=== PATIENT | female | born 1955 | race Hispanic/Latino ===

== ENCOUNTER → 2023-01-22 | Outpatient (CLI) | payer MEDICARE ==
[~2023-01-22] MED LIST: IOHEXOL 350 MG/ML 100ML INFUS..BTL IV ONE
[2023-01-22 11:13] LABS: BASOPHILS % (AUTO) 0.3 % (0.0-5.0); EOSINOPHILS % (AUTO) 0.4 % (0.0-8.0); HEMATOCRIT 44.2 % (36-48); LYMPHOCYTES % (AUTO) 24.8 % (21.0-51.0); MEAN CORPUSCULAR HEMOGLOBIN 29.9 pg (27.0-33.0); MEAN CORPUSCULAR HGB CONC 32.1 g/dL (32.0-36.0); MEAN CORPUSCULAR VOLUME 93.1 fL (79-99); MONOCYTES % (AUTO) 6.8 % (3.0-13.0); NEUTROPHILS % (AUTO) 67.3 % (40.0-77.0); PLATELET COUNT (AUTO) 197 K/uL (130-400); RED BLOOD CELL COUNT(AUTO) 4.75 MIL/uL (4.00-5.50); RED CELL DISTRIBUTION WIDTH 13.2 % (11.0-15.5); WHITE BLOOD COUNT (AUTO) 7.8 K/uL (4.8-10.8)
[2023-01-22 11:21] LABS: CREATININE 0.9 mg/dL (0.5-1.5); POTASSIUM 4.1 mmol/L (3.5-5.1)
== END | disposition home or self-care (01) ==
LOC: RAH 10:34
PROVIDERS: ATTEND Family Medicine
DX: N20.0 Calculus of kidney (principal); N28.1 Cyst of kidney, acquired; K44.9 Diaphragmatic hernia without obstruction or gangrene; R10.31 Right lower quadrant pain; Z90.49 Acquired absence of other specified parts of digestive tract
CPT/HCPCS: 74178; 80048; 85025; 36415; Q9967

== ENCOUNTER → 2024-07-13 | Outpatient (CLI) | payer MEDICARE | END | disposition home or self-care (01) | LOC: RAH 11:15 | PROVIDERS: ATTEND Family Medicine | DX: R10.9 Unspecified abdominal pain (principal); Z90.49 Acquired absence of other specified parts of digestive tract | CPT/HCPCS: 74021 ==

== ENCOUNTER → 2025-02-10 | Outpatient (CLI) | payer MEDICARE ==
--- NOTE | 2025-02-10 14:37 | HMCIMG ---
THORACIC SPINE RADIOGRAPHS - 2 VIEWS INDICATION: Back pain COMPARISON: None FINDINGS: No acute fracture or subluxation identified. Vertebral body heights and disc spaces are well-maintained. Shallow thoracic dextroscoliosis. IMPRESSION: No acute fracture or subluxation noted.
== END | disposition home or self-care (01) ==
LOC: RAH 12:52
PROVIDERS: ATTEND Anesthesiology Pain Medicine
DX: M41.84 Other forms of scoliosis, thoracic region (principal); M54.6 Pain in thoracic spine; M54.9 Dorsalgia, unspecified
CPT/HCPCS: 72070

== ENCOUNTER → 2025-02-12 | Outpatient (CLI) | payer MEDICARE ==
--- NOTE | 2025-02-12 14:43 | HMCIMG ---
SACROILIAC JOINTS RADIOGRAPHS - 3 OR MORE VIEWS INDICATION: Pain COMPARISON: None FINDINGS: No acute osseous or joint abnormality identified. No acute sacral or coccygeal abnormality noted. No evidence for sacroiliitis. 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
--- NOTE | 2025-02-12 14:43 | HMCIMG ---
LEFT HIP, INCLUDING AP PELVIS, RADIOGRAPHS - 3 VIEWS INDICATION: Pain COMPARISON: None FINDINGS: AP and abduction views of the left hip and single AP view of the pelvis. No acute fracture or subluxation identified. Both femoral heads are well formed without osteochondral erosion or radiographic evidence for avascular necrosis. No radiopaque foreign body noted. IMPRESSION: No evidence for fracture or dislocation.
--- NOTE | 2025-02-12 14:45 | HMCIMG ---
LUMBAR SPINE RADIOGRAPHS -6 VIEWS INDICATION: Low back pain, unspecified COMPARISON: None FINDINGS: Normal lordotic curvature of the lumbar spine is maintained. Extremely shallow lumbar levoscoliosis with apex at the L3 level. Five nonrib-bearing lumbar vertebral bodies are noted. No acute fracture or subluxation identified. Vertebral body heights are well-maintained. No evidence for spondylolysis. Disc spaces are well-preserved. Multilevel nominal anterior endplate osteophytic spurring. Severe hypertrophic L5-S1 facet disease contributing to fixed low-grade (2 mm) listhesis of L5 upon S1. Moderate facet disease at the at the L4-L5 level contributing to fixed low-grade (1-2 mm) anterolisthesis of L4 upon L5. IMPRESSION: Degenerative changes as described, without superimposed acute component.
--- NOTE | 2025-02-12 15:33 | HMCIMG ---
MRI LUMBAR SPINE WITHOUT CONTRAST INDICATION: M54.59, other lower back pain COMPARISON: None PARAMETERS: Long and short axis fat and water weighted sequences were obtained through the lumbar spine. FINDINGS: Normal lordosis of the lumbar spine is maintained. The lumbar vertebral bodies are normal in height, without evidence for acute compression fracture or osseous marrow replacing process. The conus medullaris is normal in signal and terminates at the appropriate level. T12-L1: No significant disc displacement, neuroforaminal narrowing, or central canal stenosis. No significant facet disease identified. L1-L2: No significant disc displacement, neuroforaminal narrowing, or central canal stenosis. No significant facet disease identified. L2-L3: No significant disc displacement, neuroforaminal narrowing, or central canal stenosis. No significant facet disease identified. L3-L4: No significant disc displacement, neuroforaminal narrowing, or central canal stenosis. No significant facet disease identified. L4-L5: Moderate hypertrophic bilateral facet disease contributing to low-grade (2 mm) anterolisthesis of L4 upon L5 without any significant neuroforaminal narrowing or central canal stenosis. L5-S1: Severe hypertrophic bilateral facet disease contributing to low-grade (2 mm) anterolisthesis of L5 upon S1 without any significant neuroforaminal narrowing or central canal stenosis. No evidence for intraannular tear or discitis. The pre- and paraspinous soft tissues appear unremarkable. ANCILLARY FINDINGS: None. IMPRESSION: Degenerative changes at the L4-L5 and L5-S1 levels as described, without any significant disc herniation, neuroforaminal narrowing, or central canal stenosis.
== END | disposition home or self-care (01) ==
LOC: RAH 13:51
PROVIDERS: ATTEND Anesthesiology Pain Medicine
DX: M47.817 Spondylosis without myelopathy or radiculopathy, lumbosacral region (principal); M43.17 Spondylolisthesis, lumbosacral region; M46.1 Sacroiliitis, not elsewhere classified; M46.06 Spinal enthesopathy, lumbar region; M41.86 Other forms of scoliosis, lumbar region; M25.78 Osteophyte, vertebrae; M25.552 Pain in left hip; M54.59 Other low back pain; M54.50 Low back pain, unspecified
CPT/HCPCS: 72110; 72148; 72200; 73502

== ENCOUNTER → 2025-06-30 | Outpatient (CLI) | payer MEDICARE ==
--- NOTE | 2025-06-30 14:43 | HMCIMG ---
CLINICAL INFORMATION Low back pain COMPARISON None. TECHNIQUE AP, lateral, and coned L5-S1 lateral view of the lumbar spine FINDINGS Diffuse bony demineralization. Vertebral Body Height: Normal. Alignment: Grade 1 anterolisthesis L4-L5 and L5-S1. Disc spaces: Normal. Posterior Elements: Moderate lower lumbar facet arthrosis. Soft Tissues: Normal. Other: None. Vertebral Anatomy: 5 lumbar-shaped vertebrae. IMPRESSION Grade 1 anterolisthesis L4-L5 and L5-S1 related to moderate lower lumbar facet arthrosis. No significant disc height loss. No evidence for acute osseous abnormality. /[place]
== END | disposition home or self-care (01) ==
LOC: RAH 12:02
PROVIDERS: ATTEND Family Medicine
DX: M47.817 Spondylosis without myelopathy or radiculopathy, lumbosacral region (principal); M43.17 Spondylolisthesis, lumbosacral region; M54.50 Low back pain, unspecified
CPT/HCPCS: 72100

== ENCOUNTER → 2025-09-07 | Outpatient (CLI) | payer MEDICARE ==
--- NOTE | 2025-09-08 00:22 | HMCIMG ---
EXAM: ABDOMEN RADIOGRAPH, DECUBITUS AND ERECT VIEWS (4 VIEWS) CLINICAL INFORMATION: Slow transit constipation. TECHNIQUE: Upright, supine, and decubitus abdominal radiographs. COMPARISON: None provided. FINDINGS: BOWEL GAS PATTERN: Non-specific bowel gas pattern without convincing evidence of obstruction. FREE AIR: No pneumoperitoneum is identified on the upright or decubitus views. STOOL BURDEN: Stool is present throughout the colon consistent with constipation. SOFT TISSUES: No radiopaque abnormality is identified. OSSEOUS STRUCTURES: No acute osseous abnormality is identified. IMPRESSION: * Non-obstructive bowel gas pattern with colonic stool burden compatible with constipation. * No pneumoperitoneum detected. * Post cholecystectomy status. /[place]
== END | disposition home or self-care (01) ==
LOC: RAH 10:10
PROVIDERS: ATTEND Family Medicine
DX: K59.01 Slow transit constipation (principal); Z90.49 Acquired absence of other specified parts of digestive tract
CPT/HCPCS: 74021